=== PATIENT | male | born 1975 | race Caucasian/White ===

== ENCOUNTER 2016-08-29 13:53 | Emergency (ER) | payer OTHER ==
--- NOTE | 2016-08-29 15:28 | ER Document Report ---
ED Medical Screen (RME) - General Chief Complaint: Other Stated Complaint: SKIN ISSUE Time seen by provider: 15:23 Mode of Arrival: Ambulatory Information source: Patient TRAVEL OUTSIDE OF THE [place] IN LAST 30 DAYS: No - HPI Patient complains to provider of: PAINFUL LUMP ON BUTTOCK/PELVIC BONE Onset: Other - TWO WEEKS Onset/Duration: Gradual Context: GETTING LARGER, NOW SIZE OF EGG. CANT SEE IT, ITS UNDER SKIN Quality of pain: Dull Severity: Mild Associated Symptoms: None Exacerbated by: Sitting Relieved by: Denies Similar symptoms previously: No Recently seen / treated by doctor: No - Related Data Smoking: Cigarettes Frequency of alcohol use: Occasional Drug Abuse: None Pertinent History: DEPRESSION APPY Allergies/Adverse Reactions: No Known Allergies Allergy (Verified 08/29/16 14:32) Past Medical History - Social History Frequency of alcohol use: Occasional Drug Abuse: None Musculoskeltal Medical History: Reports Hx Musculoskeletal Trauma - from , low back pain Psychiatric Medical History: Reports: Hx Depression Past Surgical History: Reports: Hx Appendectomy, Hx Tonsillectomy - Immunizations Immunizations up to date: Yes Hx Diphtheria, Pertussis, Tetanus Vaccination: Yes Physical Exam - Vital signs Vitals: Temp Pulse Resp BP Pulse Ox 98.2 F 95 14 127/71 H 99 08/29/16 14:04 08/29/16 14:04 08/29/16 14:04 08/29/16 14:04 08/29/16 14:04 Course - Vital Signs Vital signs: Temp Pulse Resp BP Pulse Ox 98.2 F 95 14 127/71 H 99 08/29/16 14:04 08/29/16 14:04 08/29/16 14:04 08/29/16 14:04 08/29/16 14:04
[2016-08-29] MEDS ORDERED: SULFAMETHOXAZOLE/TRIMETHOPRIM 800-160 MG TABLET PO ONE (20:04)
[2016-08-29] MEDS ORDERED: OXYCODONE-ACETAMINOPHEN 5-325 MG TABLET PO ONE (20:04)
[2016-08-29] MEDS ORDERED: IBUPROFEN 600 MG TABLET PO ONE (20:25)
--- NOTE | 2016-08-29 20:27 | ER Document Report ---
ED General - General Chief Complaint: Other Stated Complaint: SKIN ISSUE Mode of Arrival: Ambulatory Notes: Patient is a 40-year-old male without past medical history who presents with 2 weeks of increasing pain to his left buttock. Describes as a dull, deep, aching pain. Touching the area or sitting on it worsens the pain. Nothing improves the pain. Denies a history of similar symptoms in the past. He has not seen his primary care physician regarding this concern. He denies any associated constitutional symptoms or fever. Denies any pain with defecation. TRAVEL OUTSIDE OF THE [place] IN LAST 30 DAYS: No - Related Data Allergies/Adverse Reactions: No Known Allergies Allergy (Verified 08/29/16 14:32) Past Medical History - General Information source: Patient - Social History Smoking Status: Current Some Day Smoker Frequency of alcohol use: Occasional Drug Abuse: None Lives with: Spouse/Significant other Family History: Reviewed & Not Pertinent Patient has suicidal ideation: No Patient has homicidal ideation: No Musculoskeltal Medical History: Reports Hx Musculoskeletal Trauma - from , low back pain Psychiatric Medical History: Reports: Hx Depression Past Surgical History: Reports: Hx Appendectomy, Hx Tonsillectomy - Immunizations Immunizations up to date: Yes Hx Diphtheria, Pertussis, Tetanus Vaccination: Yes Review of Systems - Review of Systems Notes: Constitutional: Negative for fever. HENT: Negative for sore throat. Eyes: Negative for visual changes. Cardiovascular: Negative for chest pain. Respiratory: Negative for shortness of breath. Gastrointestinal: Negative for abdominal pain, vomiting or diarrhea. Genitourinary: Negative for dysuria. Musculoskeletal: Negative for back pain. Skin: Positive for left gluteal abscess Neurological: Negative for headaches, weakness or numbness. 10 point ROS negative except as marked above and in HPI. Physical Exam - Vital signs Vitals: Temp Pulse Resp BP Pulse Ox 98.2 F 95 14 127/71 H 99 08/29/16 14:04 08/29/16 14:04 08/29/16 14:04 08/29/16 14:04 08/29/16 14:04 Interpretation: Normal Notes: PHYSICAL EXAMINATION: GENERAL: Well-appearing, well-nourished and in no acute distress. HEAD: Atraumatic, normocephalic. EYES: Pupils equal round and reactive to light, extraocular movements intact, sclera anicteric, conjunctiva are normal. ENT: nares patent, oropharynx clear without exudates. Moist mucous membranes. NECK: Normal range of motion, supple without lymphadenopathy LUNGS: Breath sounds clear to auscultation bilaterally and equal. No wheezes rales or rhonchi. HEART: Regular rate and rhythm without murmurs ABDOMEN: Soft, nontender, normoactive bowel sounds. No guarding, no rebound. No masses appreciated. Rectal: No fluctuant mass or pain on exam no blood. EXTREMITIES: Normal range of motion, no pitting or edema. No cyanosis. NEUROLOGICAL: No focal neurological deficits. Moves all extremities spontaneously and on command. PSYCH: Normal mood, normal affect. SKIN: Warm, Dry, there is a 1 x 1 cm area of fluctuance and pain on the left buttock just lateral and inferior to the anus. Course - Re-evaluation Re-evalutation: 08/30/16 04:04 Patient presents with a left gluteal abscess close to the anus. There was no evidence of connection to the rectum without any fluctuance or pain on rectal exam. The abscess was incised and drained with expression of purulent drainage. This was a complex I&D given the location and did require expansion of the incision due to the quantity of drainage as well as multiple probings of the cavity with loculation removal. Patient will be started on Bactrim. Does not meet sepsis criteria. At this time will discharge with return precautions and follow-up recommendations. Verbal discharge instructions given a the bedside and opportunity for questions given. Medication warnings reviewed. Patient is in agreement with this plan and has verbalized understanding of return precautions and the need for primary care follow-up in the next 24-72 hours. - Vital Signs Vital signs: Temp Pulse Resp BP Pulse Ox 98.2 F 95 18 127/71 H 99 08/29/16 14:04 08/29/16 14:04 08/29/16 19:49 08/29/16 14:04 08/29/16 14:04 Procedures - Incision and Drainage Left Buttock Time completed: 20:59 Type: Complex Anesthetic type: 1% Lidocaine mL's of anesthetic: 4 Blade size: 11 I&D procedure: Chlorprep applied Incision Method: Incision made by scalpel Amount/type of drainage: 7 mL of thick, purulent drainage Notes: 01/04/17 04:04 Discharge - Discharge Clinical Impression: Gluteal abscess Condition: Good Disposition: HOME, SELF-CARE Additional Instructions: You were seen for an abscess that required drainage. Please clean this area with soap and water twice daily and apply a topical antibiotic. Dress the area after each cleaning. Please return if you develop fever, vomiting, the pain at the site worsens, you notice spreading redness from the area, or you have any other symptoms that are concerning to you. Prescriptions: Sulfamethoxazole/Trimethoprim [Bactrim Ds Tablet] 2 each PO BID #20 tablet Referrals: NICOLE NIETO MD [Primary Care Provider] - Follow up in 3-5 days
[2016-08-30 08:04] VITALS: BP 131/82
== END 2016-08-29 21:24 | disposition home or self-care (01) ==
LOC: ER 13:53
PROC: 0H98XZZ Drainage of Buttock Skin, External Approach (ICD-10-PCS; principal; 2016-08-29)
DX: L02.31 Cutaneous abscess of buttock (principal); F17.200 Nicotine dependence, unspecified, uncomplicated
CPT/HCPCS: 99283

== ENCOUNTER 2016-09-18 18:04 | Emergency (ER) | payer OTHER ==
--- NOTE | 2016-09-18 18:35 | ER Document Report ---
ED Medical Screen (RME) - General Chief Complaint: Abscess Stated Complaint: ABSCESS/BUTTOCKS Time seen by provider: 18:33 Mode of Arrival: Ambulatory Information source: Patient Notes: 41-year-old male presents to ED for a abscess to left buttock. States he had I& D done approximately 2-3 weeks ago. States that the swelling got better right away but the pain has been present since the initial visit. States she was placed on antibiotics after the I&D I have greeted and performed a rapid initial assessment of this patient. A comprehensive ED assessment and evaluation of the patient, analysis of test results and completion of medical decision making process will be conducted by an additional ED providers. TRAVEL OUTSIDE OF THE [place] IN LAST 30 DAYS: No - Related Data Allergies/Adverse Reactions: No Known Allergies Allergy (Verified 08/29/16 14:32) Past Medical History Musculoskeltal Medical History: Reports Hx Musculoskeletal Trauma - from , low back pain Psychiatric Medical History: Reports: Hx Depression Past Surgical History: Reports: Hx Appendectomy, Hx Tonsillectomy - Immunizations Immunizations up to date: Yes Hx Diphtheria, Pertussis, Tetanus Vaccination: Yes Physical Exam - Vital signs Vitals: Temp Pulse Resp BP Pulse Ox 98.1 F 68 16 126/74 H 98 09/18/16 18:29 09/18/16 18:29 09/18/16 18:29 09/18/16 18:29 09/18/16 18:29 Course - Vital Signs Vital signs: Temp Pulse Resp BP Pulse Ox 98.1 F 68 16 126/74 H 98 09/18/16 18:29 09/18/16 18:29 09/18/16 18:29 09/18/16 18:29 09/18/16 18:29
[2016-09-18] MEDS ORDERED: LIDOCAINE 1% INJ-PF (10 MG/ML) 30 ML SDV INJ ONE (23:26)
--- NOTE | 2016-09-18 23:29 | ER Document Report ---
ED Skin Rash/Insect Bite/Abscs - General Chief Complaint: Abscess Stated Complaint: ABSCESS/BUTTOCKS Time seen by provider: 23:29 Mode of Arrival: Ambulatory Information source: Patient TRAVEL OUTSIDE OF THE [place] IN LAST 30 DAYS: No - HPI Patient complains to provider of: Tender/swollen area Onset: Other - 2-3 days Onset/Duration: Persistent Quality of pain: Fullness, Pressure Severity: Moderate Pain Level: 3 Skin Character: Abscess Quality of rash: Painful Identify cause: No Exacerbated by: Denies Relieved by: Denies Similar symptoms previously: Yes Recently seen / treated by doctor: Yes - seen in the emergency room 08/29/2016 for similar Notes: Patient is a 41-year-old male presenting to the emergency room for complaints of painful swelling to left buttock, states he was seen in this emergency room on 09/25/2016 for similar complaints, had incision and drainage performed and was given antibiotics which he completed, he states the symptoms have not completely gone away, he denies any drainage at present time, no fever, no painful bowel movements - Related Data Allergies/Adverse Reactions: No Known Allergies Allergy (Verified 08/29/16 14:32) Past Medical History - General Information source: Patient - Social History Smoking Status: Former Smoker Family History: Reviewed & Not Pertinent Patient has suicidal ideation: No Patient has homicidal ideation: No Renal/ Medical History: Denies: Hx Peritoneal Dialysis Musculoskeltal Medical History: Reports Hx Musculoskeletal Trauma - from , low back pain Psychiatric Medical History: Reports: Hx Depression Past Surgical History: Reports: Hx Appendectomy, Hx Tonsillectomy - Immunizations Immunizations up to date: Yes Hx Diphtheria, Pertussis, Tetanus Vaccination: Yes Review of Systems - Review of Systems Constitutional: No symptoms reported EENT: No symptoms reported Cardiovascular: No symptoms reported Respiratory: No symptoms reported Gastrointestinal: No symptoms reported Genitourinary: No symptoms reported Male Genitourinary: No symptoms reported Musculoskeletal: No symptoms reported Skin: See HPI Hematologic/Lymphatic: No symptoms reported Neurological/Psychological: No symptoms reported -: Yes All other systems reviewed and negative Physical Exam - Vital signs Vitals: Temp Pulse Resp BP Pulse Ox 98.1 F 68 16 126/74 H 98 09/18/16 18:29 09/18/16 18:29 09/18/16 18:29 09/18/16 18:29 09/18/16 18:29 Interpretation: Normal - Notes Notes: - General General appearance: Appears well, Alert In distress: None - HEENT Head: Normocephalic, Atraumatic Eyes: Normal Conjunctiva: Normal Extraocular movements intact: Yes Eyelashes: Normal Pupils: PERRL - Respiratory Respiratory status: No respiratory distress - Cardiovascular Rhythm: Regular - Abdominal Inspection: Normal - Back Back: Normal - Extremities General upper extremity: Normal inspection General lower extremity: Normal inspection - Neurological Neuro grossly intact: Yes Orientation: AAOx4 [place] Coma Scale Eye Opening: Spontaneous [place] Coma Scale Verbal: Oriented [place] Coma Scale Motor: Obeys Commands Stacia Coma Scale Total: 15 - Psychological Associated symptoms: Normal affect, Normal mood - Skin Skin Temperature: Warm Skin Moisture: Dry Skin Color: 1 cm area of erythema and induration to the left buttock just lateral to the anus, mild tenderness, mild swelling, no fluctuance Course - Re-evaluation Re-evalutation: 09/19/16 00:49 Examination of patient's underpants shows there is some drainage on the underpants, it is likely that the abscess actually spontaneously drained just prior to my evaluation, to be on the safe side, area was numbed, a small incision was made using a scalpel to ensure there was no further purulent drainage, wound was probed for loculations, no further purulent drainage was obtained, patient was placed on clindamycin, advised to follow-up with his primary care provider or return if symptoms worsen, patient acknowledges understanding and agreement with this plan - Vital Signs Vital signs: Temp Pulse Resp BP Pulse Ox 98.1 F 64 20 111/74 98 09/18/16 18:33 09/19/16 00:18 09/19/16 00:18 09/19/16 00:18 09/19/16 00:18 Procedures - Incision and Drainage Left Buttock Time completed: 00:02 Type: Simple Anesthetic type: 1% Lidocaine mL's of anesthetic: 5 Blade size: 11 I&D procedure: Chlorprep applied Incision Method: Incision made by scalpel Amount/type of drainage: sanguinous Discharge - Discharge Clinical Impression: Abscess of buttock, left Condition: Stable Disposition: HOME, SELF-CARE Instructions: Abscess ([facility]), Post Incision and Drainage Additional Instructions: Follow up with your primary care provider in one to 2 days. Return to the emergency room immediately if symptoms worsen or any additional concerns. Prescriptions: Clindamycin HCl [Cleocin 150 mg Capsule] 450 mg PO Q6 10 Days
[2016-09-19] MEDS ORDERED: CLINDAMYCIN HCL 150 MG CAPSULE PO ONE ×2 (00:04)
[2016-09-19 00:19] VITALS: BP 111/74
== END 2016-09-19 00:19 | disposition home or self-care (01) ==
LOC: ER 18:04
PROC: 0H98XZZ Drainage of Buttock Skin, External Approach (ICD-10-PCS; principal; 2016-09-18)
DX: L02.31 Cutaneous abscess of buttock (principal); Z87.891 Personal history of nicotine dependence
CPT/HCPCS: 99283; 10060; J3490

== ENCOUNTER 2017-11-29 21:05 | Emergency (ER) | payer OTHER ==
[2017-11-29 23:36] LABS: ABSOLUTE EOSINOPHILS # (AUTO) 0.1 10^3/uL (0.0-0.6); ABSOLUTE LYMPHOCYTES (AUTO) 2.3 10^3/uL (0.5-4.7); ABSOLUTE MONOCYTES (AUTO) 0.5 10^3/uL (0.1-1.4); ABSOLUTE NEUT (AUTO) 5.6 10^3/uL (1.7-8.2); BASOPHILS % (AUTO) 0.4 % (0-2); EOSINOPHILS % (AUTO) 1.1 % (0-6); HEMOGLOBIN 13.6 g/dL (13.5-17.0); LYMPHOCYTES % (AUTO) 27.2 % (13-45); MEAN CORPUSCULAR VOLUME 94 fl (80-97); MONOCYTES % (AUTO) 5.7 % (3-13); PLATELET COUNT 310 10^3/uL (150-450); RED BLOOD COUNT 4.24 10^6/uL (4.35-5.55); RED CELL DISTRIBUTION WIDTH 13.5 % (11.5-14.0); SEGMENTED NEUTROPHILS % (AUTO) 65.6 % (42-78); TOTAL CELLS COUNTED % (AUTO) 100 %; WHITE BLOOD COUNT 8.5 10^3/uL (4.0-10.5)
[2017-11-29 23:48] LABS: ALANINE AMINOTRANSFERASE 54 U/L (21-72); ALBUMIN 4.4 g/dL (3.5-5.0); ALCOHOL 299 mg/dL (NONE DETECTED); ALKALINE PHOSPHATASE 45 U/L (38-126); ANION GAP 14 (5-19); ASPARTATE AMINO TRANSFERASE 44 U/L (17-59); BILIRUBIN,DIRECT 0.1 mg/dL (0.0-0.4); BILIRUBIN,TOTAL 0.2 mg/dL (0.2-1.3); BLOOD UREA NITROGEN 15 mg/dL (7-20); CALCIUM 9.2 mg/dL (8.4-10.2); CARBON DIOXIDE 27 mmol/L (22-30); CHLORIDE 106 mmol/L (98-107); GLUCOSE 118 mg/dL (75-110); POTASSIUM 3.8 mmol/L (3.6-5.0); SODIUM 146.9 mmol/L (137-145); TOTAL PROTEIN 6.9 g/dL (6.3-8.2)
[2017-11-30] MEDS ORDERED: DIPH/PERTUSS(ACELL)/TETANUS VAC/PF 0.5 ML SYR (>=10YO) IM ONE (00:56)
[2017-11-30] MEDS ORDERED: THIAMINE HCL 100 MG in NORMAL SALINE 50 ML IV ONE (00:58)
--- NOTE | 2017-11-30 00:58 | ER Document Report ---
ED Psych Disorder / Suicide - General Chief Complaint: ETOH Abuse Stated Complaint: POSSIBLE ETHOL ABUSE Time Seen by Provider: 11/30/17 00:32 Mode of Arrival: Stretcher Information source: Relative Notes: This is a 42-year-old man brought in by his acute alcohol intoxication with suicidal ideations. The patient has a long history of depression, he has a history of alcohol abuse and is been alcohol free for 10 years. Patient's states that the patient was having progressive depression over the past 2 weeks and was started on Abilify at the [facility]. She states that he seemed to get worse on the Abilify and last Sunday, he started sexting (which is very unusual for him) and appeared agitated. She believes that he has been drinking alcohol for the past 3 days. She states that when she called him today, he said "I have a razor blade and I am tired of this". The patient's states she [place] the patient [place]. 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 His medicines are Prozac 60 mg daily, Wellbutrin 300 mg daily, [place] of 5, fish oil. TRAVEL OUTSIDE OF THE [place] IN LAST 30 DAYS: No - HPI Patient complains to provider of: Agitated, Suicidal ideation Onset: Last week Onset was: Gradual Quality of pain: No pain Severity: None Pain Level: Denies Suicide Risk Factors: Depressed, Male, Substance abuse Situational problems related to: denies: Daughter, Legal problems, Lost job, Parent, Recent , Recent divorce, School, Sexual orientation, Significant other, Son, Spouse, Work, Other Suicide Attempt Method: Stabbing/Cutting Overdose of: No: Acetominophen, Alcohol, Anticholinergic, Anti-depressants, Benzodiazepine, Salicylate, Tricyclic Antidepressant, Other Injury to: Ankle Normal mood: No Associated symptoms: Agitated, Depressed, Irritable, Labile Similar symptoms previously: Yes Recently seen / treated by doctor: No - Related Data Allergies/Adverse Reactions: No Known Allergies Allergy (Verified 08/29/16 14:32) Past Medical History - General Information source: Relative - Social History Smoking Status: Former Smoker Cigarette use (# per day): No Chew tobacco use (# tins/day): No Frequency of alcohol use: since sunday Drug Abuse: None Lives with: Spouse/Significant other Family History: Reviewed & Not Pertinent Patient has suicidal ideation: Yes Patient has homicidal ideation: No - Past Medical History Cardiac Medical History: Reports: None Pulmonary Medical History: Reports: None Neurological Medical History: Reports: None Renal/ Medical History: Reports: None. Denies: Hx Peritoneal Dialysis Malignancy Medical History: Reports None GI Medical History: Reports: Other - buttock cyst Musculoskeltal Medical History: Reports Hx Musculoskeletal Trauma - from , low back pain Psychiatric Medical History: Reports: Hx Depression Past Surgical History: Reports: Hx Appendectomy, Hx Tonsillectomy - Immunizations Immunizations up to date: Yes Hx Diphtheria, Pertussis, Tetanus Vaccination: Yes Review of Systems - Review of Systems Constitutional: denies: Chills, Fever EENT: No symptoms reported Cardiovascular: No symptoms reported Respiratory: No symptoms reported Gastrointestinal: No symptoms reported Genitourinary: No symptoms reported Male Genitourinary: No symptoms reported Musculoskeletal: No symptoms reported Hematologic/Lymphatic: No symptoms reported Neurological/Psychological: See HPI, Depression Physical Exam - Vital signs Vitals: Temp Pulse Resp BP Pulse Ox 98.2 F 98 14 115/74 96 11/29/17 21:21 11/29/17 21:21 11/29/17 21:21 11/29/17 21:21 11/29/17 21:21 Notes: Physical exam: GENERAL: 42-year-old man, sleeping but arousable, alcohol on breath, no acute distress. HEAD: Atraumatic, normocephalic. EYES: Pupils equal round and reactive to light, extraocular movements intact, sclera anicteric, conjunctiva are normal. ENT: TMs normal, nares patent, oropharynx clear without exudates. Moist mucous membranes. NECK: Normal range of motion, supple without obvious mass or JVD. LUNGS: Breath sounds clear to auscultation bilaterally and equal. No wheezes rales or rhonchi. HEART: Regular rate and rhythm without murmurs, rubs or gallops. ABDOMEN: Soft, normoactive bowel sounds. No tenderness to palpation. No guarding, no rebound. No masses appreciated. Back: No lesions. Rectal: Patient does have a chronic cyst in the left buttocks which does not appear tender and is not draining and has no significant fluctuance at this time. (This is chronic and the patient does have an outpatient referral to get this taken care of). EXTREMITIES: Normal range of motion, no pitting or edema. No clubbing or cyanosis. NEUROLOGICAL: Cranial nerves II through XII grossly intact. Normal speech, moving all extremities. PSYCH: Normal mood, normal affect. SKIN: She does have multiple superficial abrasions on the upper extremities. The patient's states that he may have cut himself with a razor blade. Course - Re-evaluation Re-evalutation: 11/30/17 04:40 Note: Patient does not have any obvious head trauma. Head CT shows no acute process. His alcohol level is 299. The plan will be to wait for sobriety and psych evaluation in the morning - Vital Signs Vital signs: Temp Pulse Resp BP Pulse Ox 98.2 F 98 14 115/74 96 11/29/17 21:21 11/29/17 21:21 11/29/17 21:21 11/29/17 21:21 11/29/17 21:21 - Laboratory Result Diagrams: 11/29/17 23:20 11/29/17 23:20 Laboratory results interpreted by me: 11/29/17 11/29/17 11/29/17 23:20 23:20 23:20 RBC 4.24 L Sodium 146.9 H Glucose 118 H Magnesium 2.6 H Salicylates < 1.0 L Acetaminophen < 10 L - Diagnostic Test Radiology reviewed: Image reviewed, Reports reviewed - CT of the head shows no acute process. Chest x-ray shows low volumes with atelectasis. X-ray of the foot shows no acute fracture. - EKG Interpretation by Me Rate: Normal Rhythm: NSR - EKG shows normal sinus rhythm with a ventricular rate of 70, no acute ST-T wave changes Discharge - Discharge Clinical Impression: Depression, Suicidal ideation, Alcohol intoxication, Right ankle sprain Condition: Stable Disposition: PSYCH HOSP/UNIT Instructions: Tetanus Immunization Given ([facility])
[2017-11-30] MEDS: NORMAL SALINE 1000 ML 1,000 ML IV PRN ×2 (01:11→07:21)
[2017-11-30] MEDS ORDERED: FOLIC ACID INJ 5 MG/1 ML 10 ML VIAL IV ONE (01:15)
[2017-11-30 01:20] LABS: ACETAMINOPHEN < 10 ug/mL (10-30); SALICYLATE < 1.0 mg/dL (2.0-20.0)
[2017-11-30] MEDS ORDERED: THIAMINE HCL INJ 200 MG/2 ML VIAL ONE (01:31)
[2017-11-30 01:40] LABS: APPEARANCE,URINE CLEAR; BILIRUBIN,URINE NEGATIVE (NEGATIVE); COLOR,URINE YELLOW; GLUCOSE, URINE NEGATIVE (NEGATIVE); KETONES,URINE NEGATIVE (NEGATIVE); LEUKOCYTE ESTERASE,URINE NEGATIVE (NEGATIVE); NITRITE,URINE NEGATIVE (NEGATIVE); PROTEIN,URINE NEGATIVE (NEGATIVE); URINE SPECIFIC GRAVITY 1.008; UROBILINOGEN,URINE NEGATIVE mg/dL (<2.0)
[2017-11-30 01:56] LABS: URINE AMPHETAMINES SCREEN NEGATIVE; URINE BARBITURATES SCREEN NEGATIVE; URINE BENZODIAZEPINES SCREEN NEGATIVE; URINE COCAINE SCREEN NEGATIVE; URINE MARIJUANA (THC) SCREEN NEGATIVE; URINE METHADONE SCREEN NEGATIVE; URINE PHENCYCLIDINE SCREEN NEGATIVE
--- NOTE | 2017-11-30 03:03 | RADIOLOGY REPORT (SQ) ---
EXAM DESCRIPTION: CT HEAD WITHOUT CLINICAL HISTORY: Change in mental status COMPARISON: None available TECHNIQUE: Axial CT of the head obtained from the skull apex to the skull base without contrast. FINDINGS: No acute intracranial hemorrhage identified. No mass, mass effect, shift of the midline, abnormal extra-axial fluid collection or CT evidence of acute ischemic change identified. The ventricular system is unremarkable. No acute abnormalities of the supratentorial white matter, basal ganglia, cerebellum, or brainstem. The visualized paranasal sinuses and the mastoids are clear. No skull fracture identified. Visualized orbits and globes are unremarkable. DLP:1070.38 mGy-cm IMPRESSION: 1. No acute intracranial abnormality identified. This exam was performed according to our departmental dose-optimization program, which includes automated exposure control, adjustment of the mA and/or kV according to patient size and/or use of iterative reconstruction technique.
--- NOTE | 2017-11-30 03:15 | RADIOLOGY REPORT (SQ) ---
EXAM DESCRIPTION: CHEST SINGLE VIEW CLINICAL HISTORY: chest pain COMPARISON: None. FINDINGS: Single frontal view of the chest. The cardiomediastinal silhouette has normal size and contour. Normal bibasilar opacities. Low lung volumes. No pneumothorax or pleural effusion. No displaced rib fractures identified. Upper abdominal soft tissues are unremarkable. IMPRESSION: 1. Low lung volumes with minimal bibasilar opacities which may be related to subsegmental atelectasis.
--- NOTE | 2017-11-30 03:16 | RADIOLOGY REPORT (SQ) ---
EXAM DESCRIPTION: ANKLE RIGHT AP/LATERAL CLINICAL HISTORY: right ankle swelling COMPARISON: None. FINDINGS: 2 views of the right ankle. No acute fracture or dislocation. Degenerative change of the ankle. Normal osseous mineralization. Base of the fifth metatarsal appears intact. Tibial plafond and talar dome have normal appearance. Soft tissue edema. IMPRESSION: No acute fracture or dislocation.
[2017-11-30] MEDS ORDERED: ACETAMINOPHEN 325 MG TABLET PO ONE (06:30)
[2017-11-30] MEDS ORDERED: LORAZEPAM INJ 2 MG/1 ML VIAL IV ONE (06:31)
[2017-11-30] MEDS ORDERED: IBUPROFEN 600 MG TABLET PO ONE (10:15)
--- NOTE | 2017-11-30 10:18 | ER Document Report ---
Doctor's Note Notes: 11/30/17 10:17 Rounds: Chart reviewed and patient interviewed. Patient is awake and alert and answering questions appropriately. Being evaluated for depression and suicidal ideation and substance abuse. Patient has been 10 years without drinking alcohol until this past week. His alcohol level upon admission here was 299. All other labs essentially normal. Vital signs are normal. Patient denies feeling suicidal at this time. He attributes his acute depression to the starting to take Abilify last week. Patient appears to be medically stable for transfer or discharge. Cr Lockhart MD
--- NOTE | 2017-11-30 10:32 | EKG REPORT ---
SEVERITY:- OTHERWISE NORMAL ECG - SINUS RHYTHM LEFT AXIS DEVIATION : Confirmed by: Felipe Talbert 30-Nov-2017 10:31:42
[2017-11-30] MEDS ORDERED: VENLAFAXINE HCL 37.5 MG CAP.SR.24H PO ONE (14:06)
[2017-11-30] MEDS ORDERED: BUSPIRONE HCL 10 MG TABLET PO ONE (14:06)
[2017-11-30 14:23] VITALS: BP 135/80
--- NOTE | 2017-12-02 10:39 | PSYCHOLOGICAL NOTE ---
Psych Note - Psych Note Psych Note: Reason for Consult: suicidal ideation, substance abuse; alcohol Consult requested 0700 evaluation 0825 This is a 42-year-old man brought in by his acute alcohol intoxication with suicidal ideations. The patient has a long history of depression, he has a history of alcohol abuse and is been alcohol free for 10 years. Patient's states that the patient was having progressive depression over the past 2 weeks and [facility] She states that he seemed to get worse on the Abilify and last Sunday, he started sexting (which is very unusual for him) and appeared agitated. Patient disclosed he does not remember anything past calling his , Aisha. He states that they have been having marital problems and was staying at a "friend's" house the last 2 days. He reports last night he drove to the [facility], started drinking (he was 10 years sober) and had suicidal ideation. He reports he took a razor and started to cut himself; clinician observes about 2 superficial scratches going up his forearm. Patient disclosed that he was glad he was found and denies current suicidal ideation; "I am mandy...I am glad they found me." Patient's , Aisha, disclosed the patient had a recent medication change ( Abilify) and he started to demonstrate behaviour that she reports is very out of character for the patient. He was sexting and then drank last night after 10 years being sober. Behavioral Health team was notified there was visitors for the patient that disclosed they are the patient's family and Aisha is not the patient's . Family is very tearful. After discussing with patient alone whom he would like to be in his room, he disclosed he wanted Aisha. patient is alert and orientated to person, place time and circumstance. Mood is euthymic with congruent affect. Delusions are absent and behaviors congruent with intact reality based presentation i.e. organized and linear thought processes. Patient denies suicidal and homicidal ideation stating that he was drinking last night after 10 years of sobriety. Delusions are absent and behaviors congruent with intact reality based presentation i.e. organized and linear thought processes. Eye contact was well-maintained. Conversational speech was within normal rate, tone and prosody. Attention and concentration are good. Insight, judgment, impulse control are currently good however it is noted patient has relapsed last night after 10 years of sobriety. Medication recommendations per [facility]'s contracted psychiatrist Dr. Shari BAZZI are as follows 1. Effexor 37.5mg twice daily for both antidepressant and assistance in alcohol cravings 2. BuSpar 10mg twice daily for anxiety Substance abuse; alcohol, recent relapse after 10 year sobriety patient is recommended for rescind of IVC and is considered impression/plan: Cleared from acute psychiatric services. Patient denies current suicidal ideation and is no longer under the influence. Patient no longer meets IVC criteria per [place] GS 122C. Patient discloses recent medication change that could have contributed to recent behavioral changes. [facility] 10 AM. Patient is recommended to reengage in sobriety support services in obtaining mental health treatment. Dr. Alvarez was consulted and the care and management of this patient; attending physician is in agreement with recommendations and disposition.
== END 2017-11-30 14:35 | disposition home or self-care (01) ==
LOC: ER 21:05
DX: F32.9 Major depressive disorder, single episode, unspecified (principal); F10.129 Alcohol abuse with intoxication, unspecified; Y90.8 Blood alcohol level of 240 mg/100 ml or more; S93.401A Sprain of unspecified ligament of right ankle, initial encounter; X58.XXXA Exposure to other specified factors, initial encounter; S50.812A Abrasion of left forearm, initial encounter; S50.811A Abrasion of right forearm, initial encounter; X78.8XXA Intentional self-harm by other sharp object, initial encounter; Y93.89 Activity, other specified; Y92.821 Forest as the place of occurrence of the external cause; R41.3 Other amnesia; R45.851 Suicidal ideations; J98.11 Atelectasis; R45.4 Irritability and anger; R45.1 Restlessness and agitation; Z79.899 Other long term (current) drug therapy; Z87.891 Personal history of nicotine dependence
CPT/HCPCS: 93005; 99285; 96361; 90471; 96374; 96375; 36415; 80307 ×4; 83735; 84443; 85025; 80053; 81001; 73600; 71045; 70450; 90715; 93010; L1902; J3490 ×2; J3411; J7030

== ENCOUNTER 2017-12-26 13:01 | Day surgery (SDC) | payer OTHER ==
[2017-12-24 10:18] LABS: HEMATOCRIT 40.2 % (37.9-51.0); HEMOGLOBIN 13.6 g/dL (13.5-17.0); MEAN CORPUSCULAR HEMOGLOBIN 32.1 pg (27.0-33.4); MEAN CORPUSCULAR HGB CONC 33.8 g/dL (32.0-36.0); MEAN CORPUSCULAR VOLUME 95 fl (80-97); PLATELET COUNT 255 10^3/uL (150-450); RED BLOOD COUNT 4.24 10^6/uL (4.35-5.55); RED CELL DISTRIBUTION WIDTH 13.5 % (11.5-14.0)
[2017-12-24 10:42] LABS: ANION GAP 13 (5-19); BLOOD UREA NITROGEN 16 mg/dL (7-20); CALCIUM 9.6 mg/dL (8.4-10.2); CARBON DIOXIDE 30 mmol/L (22-30); CHLORIDE 102 mmol/L (98-107); GLUCOSE 83 mg/dL (75-110); POTASSIUM 4.9 mmol/L (3.6-5.0)
[~2017-12-26 13:01] MED LIST: LACTATED RINGERS 1000 ML IV PRN; LIDOCAINE 0.5% INJ-PF (5 MG/ML) 50 ML SDV SUBCUT PRN; LIDOCAINE 1%/EPINEPHRINE INJ 20 ML VIAL ONE; LIDOCAINE 2% JELLY 30 ML TUBE ONE; METRONIDAZOLE 500 MG/NS RTU 100 ML IV PRN; SUCCINYLCHOLINE CHLORIDE INJ 200 MG/10 ML VIAL ONE
[2017-12-26] MEDS ORDERED: MIDAZOLAM 2 MG/2 ML INJ ONE (15:23)
[2017-12-26] MEDS ORDERED: EPHEDRINE SULFATE INJ 50 MG/1 ML AMPULE ONE (15:23)
[2017-12-26] MEDS ORDERED: FENTANYL CITRATE INJ/PF 250 MCG/5 ML AMPULE ONE (15:23)
[2017-12-26] MEDS ORDERED: HYDROMORPHONE HCL INJ/PF 2 MG/ML AMPULE ONE (15:24)
[2017-12-26] MEDS ORDERED: PROPOFOL INJ 200 MG/20 ML VIAL IV ONE (15:24)
[2017-12-26] MEDS ORDERED: ACETAMINOPHEN 100 ML IV ONE (15:24)
[2017-12-26] MEDS ORDERED: OXYCODONE-ACETAMINOPHEN 5-325 MG TABLET PO PRN (16:48)
--- NOTE | 2017-12-26 16:48 | Discharge Summary ---
Discharge Summary (SDC) - Discharge Final Diagnosis: Anal fistula Date of Surgery: 12/26/17 Discharge Date: 12/26/17 Condition: Stable Treatment or Instructions: [facility] [address] [place] [id number] Fistula Excision Discharge Instructions 1. General Information: a. DO NOT DRIVE a car or operate dangerous machinery for 4-7 days or while taking narcotic prescription pain pills. b. DO NOT consume alcohol, tranquilizers, sleeping medications or any non- prescribed medications for 24 hours unless approved by your doctor or as long as taking narcotic prescription medications. c. DO NOT make important decisions or sign any important papers for the first 24 hours after surgery. d. Have a responsible person with you tonight. 2. Activity Restrictions: 2 weeks. a. Avoid heavy lifting or straining until you feel more comfortable. b. It is fine to go for walks, up and down steps, ride in a car. c. Avoid prolonged direct contact or pressure to the area. 3. Treatment: a. You may shower the next day. It is usually best to remove the outer dressing before the shower. Wash any soap out of the wound daily. c. If no packing was placed, shower, like normal and dry. Cover with a dry gauze and tape. c. Change the dressing after each bowel movement. 4. Medications: a. You may take the prescription tablets for pain one tablet every 6 hours. (_ Tordaol____). d. Stool softeners are encouraged to hel you for 2-4 weeks to maintain a soft stool and avoid more painful bowel movements due to pain medication. Colace is often used. 5. Diet: a. Begin with clear liquids and if you do well you may then advance to normal foods low in fat and protein at first. Smaller portion size may be mohan the first night. 6. Notify Physician If: a. Worsening of pain not improved with pain medication b. Fever above 101 c. Persistent bleeding or swelling at operative site d. Unable to urinate and uncomfortable bladder 6-8 hours after surgery 7..Follow Up Care: a. Schedule a follow up appointment with your doctor for 2 weeks. In the event of any postoperative problems or questions or you may call the office during business hours or the On-Call physician evenings and weekends at [facility]. [facility] I understand the instructions for my postoperative care as described above and a copy has been given to me. Patient/Significant Other Witness Date Prescriptions: Ketorolac Tromethamine [Toradol 10 mg Tablet] 10 mg PO Q6HP PRN #20 tablet PRN Reason: Referrals: KAE HOANG FNP [Primary Care Provider] - Discharge Diet: As Tolerated Discharge Activity: Walk Frequently Report the Following to Your Physician Immediately: Nausea, Vomiting, Fever over 101 Degrees, Redness, Swelling, Warmth, Drainage-Foul Smelling
--- NOTE | 2017-12-26 16:54 | Operative Report ---
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 2. Excision of complex left lateral fistula in ano (complete fistulectomy) SURGEON: CROW GILBERT 1ST CARD LACER: DIONICIO NUNEZ ANESTHESIA: GA TISSUE REMOVED OR ALTERED: Anal abscess cavity and fistula COMPLICATIONS: None ESTIMATED BLOOD LOSS: Scant INTRAOPERATIVE FINDINGS: See below PROCEDURE: The patient was taken to the main operating room where general anesthesia was induced. He was placed in the prone jackknife position buttocks spread, hair clipped, buttocks taped widely open. Surgical plan surgical timeout were conducted. The perianal tissue was prepped with Betadine. Findings were significant for opening in the perianal tissue consistent with perianal abscess approximately 4 cm from the anal verge. There was a small amount of pus coming from this area. We dilated up the anal rectal canal to admit to adult fingers. The bullet anoscope was inserted into the anal canal, and we examined for any other pathology. The findings were significant for an opening in the skin just at the anal verge, in a direct radial line with the perianal abscess drainage site. Initially we felt this was a superficial fistula tract but in reality it turned out to be partially intersphincteric, almost in a U-shaped fashion. We now injected full-strength peroxide using a Jelco 18-gauge into the abscess cavity and fistula tract. Not only was peroxide bubbling out through the superficial fistula opening, but there was peroxide coming from a deeper side right at the dentate line. We surmised that there were 2 internal openings to this complex fistula in ano. I anesthetized the skin around the exit site of the perianal abscess, and proceeded to excise the abscess cavity which was quite small, in conjunction with fistula tract which was actually a bifurcated or "Y" configured; we used a combination of sharp and electric cautery and mostly scissor dissection to remove the well-established chronic tract. The entire abscess cavity which was quite small was removed, in conjunction with the first superficial fistula which in fact required us to dissect through the external sphincter muscle. We did this very carefully so as to minimize disruption of skeletal muscle fibers. Once the entire superficial tract was excised, we had now a second hole in the patient's anal tissue, right at the anal verge, approximately 5 mm in diameter. The original abscess excision site was approximately 2.5 cm in diameter. Continue to dissected the deeper tract which tunneled close to and parallel to the anorectal canal. Eventually the fistula tapered to a narrow fibrous cord and released itself from the rectal wall. We sent all of the fragments of the fistula to pathology. We irrigated out the perianal tissue thoroughly. We did cauterize gently the mucosa at the deep fistula opening at the dentate line. At this point we felt the operation was complete. Bleeding was never of concern. There was no autumn pus. I felt it was most appropriate to manage the wounds by allowing them to close by secondary intention. 4 x 4's were applied. Patient tolerated procedure well, rotated into the supine position, extubated and taken to the recovery room in stable condition. The physician trust administrative assistant, Ms. Esteves, provided assistance during this case by: Assisting retracting tissue, instillation of local anesthesia and closure of skin incisions.
[2017-12-26 18:47] VITALS: BP 114/70
== END 2017-12-26 18:50 | disposition home or self-care (01) ==
LOC: OROUT 13:01
PROVIDERS: ATTEND Surgery
DX: K60.3 Anal fistula (principal); F41.9 Anxiety disorder, unspecified; Z87.891 Personal history of nicotine dependence; Z79.899 Other long term (current) drug therapy
CPT/HCPCS: 36415; 85027; 80048; 88305 ×2; 46270; J2250; J3490 ×2; J3010; J1170; J0330; J2704; J0131; 902

== ENCOUNTER 2018-02-12 22:28 | Emergency (ER) | payer OTHER ==
[2018-02-13] MEDS ORDERED: DIAZEPAM 5 MG TABLET PO ONE (01:59)
--- NOTE | 2018-02-13 02:08 | ER Document Report ---
ED General - General Chief Complaint: Headache Stated Complaint: HEADACHES Time Seen by Provider: 02/13/18 01:49 Mode of Arrival: Ambulatory Information source: Patient Notes: 42 yr old male presents with complaints of left tmj pain over the past few years worsened today causing pain to his head. pt notes that this is similar ot his previous jaw and headache. denies any fevers or chills, denies any nausea vomiting, denies any light sensitivity. pt denies any temporal pain, notes that he has been evaluated for this pain in the past and is to see the dentist next week TRAVEL OUTSIDE OF THE [place] IN LAST 30 DAYS: No - HPI Onset: Other Onset/Duration: Persistent Quality of pain: Sharp Severity: Mild Pain Level: 2 Associated symptoms: Headache Exacerbated by: Other - opening and closing mouth Relieved by: Denies Similar symptoms previously: Yes Recently seen / treated by doctor: Yes - Related Data Allergies/Adverse Reactions: No Known Allergies Allergy (Verified 12/26/17 13:57) Past Medical History - Social History Smoking Status: Never Smoker Cigarette use (# per day): No Chew tobacco use (# tins/day): No Smoking Education Provided: No Frequency of alcohol use: None Drug Abuse: None Family History: Reviewed & Not Pertinent Patient has suicidal ideation: No Patient has homicidal ideation: No - Past Medical History Cardiac Medical History: Denies: Hx Coronary Artery Disease, Hx Heart Attack, Hx Hypertension Pulmonary Medical History: Denies: Hx Asthma, Hx Bronchitis, Hx COPD, Hx Pneumonia Neurological Medical History: Denies: Hx Cerebrovascular Accident, Hx Seizures Renal/ Medical History: Denies: Hx Peritoneal Dialysis Musculoskeltal Medical History: Denies Hx Arthritis, Reports Hx Musculoskeletal Trauma - from , low back pain Psychiatric Medical History: Reports: Hx Depression Past Surgical History: Reports: Hx Appendectomy, Hx Tonsillectomy - Immunizations Immunizations up to date: Yes Hx Diphtheria, Pertussis, Tetanus Vaccination: Yes Review of Systems - Review of Systems Notes: REVIEW OF SYSTEMS: CONSTITUTIONAL : Denies fever, chills, or sweats. Denies recent illness. EENT: left jaw pain radiating to the head CARDIOVASCULAR: Denies chest pain. Denies palpitations or racing or irregular heart beat. Denies ankle edema. RESPIRATORY: Denies cough, cold, or chest congestion. Denies shortness of breath, difficulty breathing, or wheezing. GASTROINTESTINAL: Denies abdominal pain or distention. Denies nausea, vomiting , or diarrhea. Denies blood in vomitus, stools, or per rectum. Denies black, tarry stools. Denies constipation. GENITOURINARY: Denies difficulty urinating, painful urination, burning, frequency, blood in urine, or discharge. MUSCULOSKELETAL: Denies back or neck pain or stiffness. Denies joint pain or swelling. SKIN: Denies rash, lesions or sores. HEMATOLOGIC : Denies easy bruising or bleeding. LYMPHATIC: Denies swollen, enlarged glands. NEUROLOGICAL: Denies confusion or altered mental status. Denies passing out or loss of consciousness. Denies dizziness or lightheadedness. Denies headache. Denies weakness or paralysis or loss of use of either side. Denies problems with gait or speech. Denies sensory loss, numbness, or tingling. Denies seizures. PSYCHIATRIC: Denies anxiety or stress. Denies depression, suicidal ideation, or homicidal ideation. ALL OTHER SYSTEMS REVIEWED AND NEGATIVE. Dictation was performed using [employer] voice recognition software PHYSICAL EXAMINATION: GENERAL: Well-appearing, well-nourished and in no acute distress. HEAD: Atraumatic, normocephalic. EYES: Pupils equal round and reactive to light, extraocular movements intact, sclera anicteric, conjunctiva are normal. ENT: Nares patent, oropharynx clear without exudates. Moist mucous membranes. point tenderness of the left jaw, no clicking of the tmj noted, no temporal tenderness NECK: Normal range of motion, supple without lymphadenopathy LUNGS: Breath sounds clear to auscultation bilaterally and equal. No wheezes rales or rhonchi. HEART: Regular rate and rhythm without murmurs ABDOMEN: Soft, nontender, nondistended abdomen. No guarding, no rebound. No masses appreciated. Musculoskeletal: Normal range of motion, no pitting or edema. No cyanosis. NEUROLOGICAL: Cranial nerves grossly intact. Normal speech, normal gait. Normal sensory, motor exams PSYCH: Normal mood, normal affect. SKIN: Warm, Dry, normal turgor, no rashes or lesions noted. Physical Exam - Vital signs Vitals: Temp Pulse Resp BP Pulse Ox 97.9 F 66 18 150/81 H 96 02/12/18 22:40 02/12/18 22:40 02/12/18 22:40 02/12/18 22:40 02/12/18 22:40 Course - Re-evaluation Re-evalutation: 02/13/18 03:15 pts presentation is not concerning for any intracranial abnormality, they notes that they are wanting imaging [facility] get [facility] with his molar impaction. i will order imaging at thier request. pt has no neuro deficits, he is sleeping on my initial evaluation in no distress, pt given valium for the joint discomfort and will dc home with muscle relaxant. After performing a Medical Screening Examination, I estimate there is LOW risk for ACUTE GLAUCOMA, TEMPORAL ARTERITIS, MENINGITIS, INCRANIAL HEMORRHAGE, or ISCHEMIC STROKE thus I consider the discharge disposition reasonable. I have reevaluated this patient multiple times and no significant life threatening changes are noted. The patient and I have discussed the diagnosis and risks, and we agree with discharging home with close follow-up with the understanding that symptoms and presentations can change. We also discussed returning to the Emergency Department immediately if new or worsening symptoms occur. We have discussed the symptoms which are most concerning (e.g., changing or worsening symptoms, new numbness or weakness, vomiting, fever) that necessitate immediate return. - Vital Signs Vital signs: Temp Pulse Resp BP Pulse Ox 97.9 F 77 18 120/67 100 02/12/18 22:40 02/13/18 01:04 02/13/18 01:04 02/13/18 01:04 02/13/18 01:04 - Diagnostic Test Radiology reviewed: Image reviewed - xray facial bones notes no signicant abnormality, molar impactions noted, Reports reviewed Discharge - Discharge Clinical Impression: Impacted molar, TMJ pain dysfunction syndrome Condition: Stable Disposition: HOME, SELF-CARE Instructions: Temporomandibular Joint Injury ([facility]), Temporomandibular Joint Syndrome ([facility]) Additional Instructions: Follow up with your physician tomorrow for further care or return to the ED IMMEDIATELY if symptoms worsen or new concerns occur. If you cannot afford to follow up with your primary care physician a list of low cost clinics have been provided at the end of your discharge papers as well. Prescriptions: Cyclobenzaprine HCl [Flexeril 10 mg Tablet] 10 mg PO TIDP PRN #15 tab PRN Reason:
--- NOTE | 2018-02-13 02:25 | RADIOLOGY REPORT (SQ) ---
EXAM DESCRIPTION: XR FACIAL BONES 1-2 VIEWS COMPLETED DATE/TME: 02/13/2018 01:59 CLINICAL HISTORY: 42 years, Male, left tmj pain COMPARISON: None. NUMBER OF VIEWS: 3 LIMITATIONS: No dedicated TMJ views FINDINGS: Three radiographic views of facial bones including a Sanchez' view appear unremarkable. Paranasal sinuses appear clear. IMPRESSION: No acute findings.
[2018-02-13 03:53] VITALS: BP 121/75
== END 2018-02-13 03:52 | disposition home or self-care (01) ==
LOC: ER 22:28
DX: K01.1 Impacted teeth (principal); M26.622 Arthralgia of left temporomandibular joint; R51 Headache
CPT/HCPCS: 70150; 99283

== ENCOUNTER 2018-10-02 09:05 | Day surgery (SDC) | payer OTHER ==
[2018-09-25 09:07] LABS: HEMATOCRIT 39.5 % (37.9-51.0); HEMOGLOBIN 13.5 g/dL (13.5-17.0); MEAN CORPUSCULAR HEMOGLOBIN 32.3 pg (27.0-33.4); MEAN CORPUSCULAR HGB CONC 34.2 g/dL (32.0-36.0); MEAN CORPUSCULAR VOLUME 94 fl (80-97); PLATELET COUNT 250 10^3/uL (150-450); RED BLOOD COUNT 4.18 10^6/uL (4.35-5.55); RED CELL DISTRIBUTION WIDTH 13.8 % (11.5-14.0); WHITE BLOOD COUNT 6.8 10^3/uL (4.0-10.5)
[~2018-10-02 09:05] MED LIST changes: +DEXTROSE 5%-LACTATED RINGERS 1,000 ML IV PRN; -LACTATED RINGERS 1000 ML IV PRN; -LIDOCAINE 0.5% INJ-PF (5 MG/ML) 50 ML SDV SUBCUT PRN; -LIDOCAINE 1%/EPINEPHRINE INJ 20 ML VIAL ONE; -LIDOCAINE 2% JELLY 30 ML TUBE ONE; -METRONIDAZOLE 500 MG/NS RTU 100 ML IV PRN; +METRONIDAZOLE 500 MG/NS RTU 500 MG/100 ML RTUPB IV ONE; +METRONIDAZOLE 500 MG/NS RTU 500 MG/100 ML RTUPB IV PRN
[2018-10-02] MEDS ORDERED: LIDOCAINE 1%/EPINEPHRINE INJ 20 ML VIAL ONE (12:03)
[2018-10-02] MEDS ORDERED: LIDOCAINE 2% URO-JET 5 ML KIT ONE (12:15)
[2018-10-02] MEDS ORDERED: LIDOCAINE 2% INJ-PF (20 MG/ML) 10 ML AMPUL ONE (12:24)
[2018-10-02] MEDS ORDERED: FENTANYL CITRATE INJ/PF 100 MCG/2 ML AMPUL ONE (12:24)
[2018-10-02] MEDS ORDERED: ONDANSETRON HCL INJ/PF 4 MG/2 ML SDV ONE (12:25)
[2018-10-02] MEDS ORDERED: DEXAMETHASONE SOD PHOSPHATE INJ 4 MG/1 ML VIAL ONE (12:25)
[2018-10-02] MEDS ORDERED: PROPOFOL INJ 200 MG/20 ML VIAL IV ONE (12:25)
[2018-10-02] MEDS ORDERED: ACETAMINOPHEN 1,000 MG/100 ML RTUPB IV ONE (12:26)
[2018-10-02] MEDS ORDERED: MIDAZOLAM 2 MG/2 ML INJ ONE (12:27)
[2018-10-02] MEDS ORDERED: DIPHENHYDRAMINE HCL 50 MG/ML VIAL IV PRN (13:05)
[2018-10-02] MEDS ORDERED: MORPHINE SULFATE 10 MG/ML INJ IV PRN (13:05)
[2018-10-02] MEDS ORDERED: MEPERIDINE HCL/PF INJ 25 MG/1 ML DISP.SYRIN IV PRN (13:05)
[2018-10-02] MEDS ORDERED: PROMETHAZINE HCL INJ 25 MG/1 ML VIAL IV PRN ×2 (13:05)
[2018-10-02] MEDS ORDERED: FENTANYL CITRATE INJ/PF 100 MCG/2 ML AMPUL IV PRN ×3 (13:05)
[2018-10-02] MEDS ORDERED: BUPIVACAINE HCL 0.5%-EPI 1:200000 INJ/PF 30 ML VIAL ONE (13:14)
[2018-10-02] MEDS ORDERED: OXYCODONE-ACETAMINOPHEN 5-325 MG TABLET PO PRN (13:30)
--- NOTE | 2018-10-02 13:30 | Discharge Summary ---
Discharge Summary (SDC) - Discharge Final Diagnosis: EUA with fistulotomy Date of Surgery: 10/02/18 Discharge Date: 10/02/18 Condition: Good Forms: ASU Anesthesia D/C Instruction, Discharge POC-Surgical Service Treatment or Instructions: [facility] [address] [place] [id number] Fistulectomy Discharge Instructions 1. General Information: a. DO NOT DRIVE a car or operate dangerous machinery for 4-7 days or while taking narcotic prescription pain pills. b. DO NOT consume alcohol, tranquilizers, sleeping medications or any non- prescribed medications for 24 hours unless approved by your doctor or as long as taking narcotic prescription medications. c. DO NOT make important decisions or sign any important papers for the first 24 hours after surgery. d. Have a responsible person with you tonight. 2. Activity Restrictions: 2 weeks weeks. a. Avoid heavy lifting or straining until you feel more comfortable. b. It is fine to go for walks, up and down steps, ride in a car. c. Avoid prolonged direct contact or pressure to the area. 3. Treatment: a. You may shower the next day. It is usually best to remove the outer dressing before the shower. Then gently pull out the gauze packing inside the cavity. Do not moisten prior to removal. Wash any soap out of the wound daily. Once you're done showering, dry the area completely and cover with gauze. Change dressing after each bowel movement. You may do sitz baths 4x a day. 4. Medications: a. You may take the narcotic prescription tablets for pain one tablet every 6 hours. (Toradol). c. Resume all normal medications unless a change is specified by your doctors. d. Stool softeners are encouraged to help you for 2-4 weeks to maintain a soft stool and avoid more painful bowel movements due to pain medication. Colace is often used. 5. Diet: a. Begin with clear liquids and if you do well you may then advance to normal foods low in fat and protein at first. Smaller portion size may be mohan the first night. 6. Notify Physician If: a. Worsening of pain not improved with pain medication b. Fever above 101 c. Persistent bleeding or swelling at operative site d. Unable to urinate and uncomfortable bladder 6-8 hours after surgery 7..Follow Up Care: a. Schedule a follow up appointment with your doctor for 2 weeks. In the event of any postoperative problems or questions or you may call the office during business hours or the On-Call physician evenings and weekends at [facility]. [facility] I understand the instructions for my postoperative care as described above and a copy has been given to me. Patient/Significant Other Witness Date Prescriptions: Ketorolac Tromethamine [Toradol 10 mg Tablet] 10 mg PO Q6HP PRN #20 tablet PRN Reason: Referrals: CROW GILBERT MD [ACTIVE STAFF] - Discharge Diet: As Tolerated Discharge Activity: Balance Activity w/Rest, No Lifting Over 10 Pounds, No Lifting/Push/Pulling, Walk Frequently Report the Following to Your Physician Immediately: Nausea, Vomiting, Increase in Pain, Fever over 101 Degrees, Unusual Bleeding, Redness, Increased Soreness
--- NOTE | 2018-10-02 13:40 | Operative Report ---
Operative Report DATE OF SURGERY: 10/02/18 PREOPERATIVE DIAGNOSIS: 1. History of complex fistula in anal. 2. Acute left anterior lateral perianal abscess with fistula and anal POSTOPERATIVE DIAGNOSIS: Same OPERATION: 1. Examination under anesthesia. 2. Left anterior lateral perianal abscess excision and fistulectomy SURGEON: CROW GILBERT 1ST SECURITY CONTROL ASSESSOR: DIONICIO NUNEZ ANESTHESIA: GA TISSUE REMOVED OR ALTERED: See below COMPLICATIONS: None ESTIMATED BLOOD LOSS: scant INTRAOPERATIVE FINDINGS: See below PROCEDURE: Patient was taken to the preop holding of the main operating where general anesthesia was induced. He was then placed in the prone jackknife position buttocks spread shaved and taped widely. The buttock was then prepped and draped in sterile fashion. Surgical plan surgical timeout were conducted. Findings are significant for left anterior lateral perianal abscess opening, small. The perianal tissue was anesthetized with 1% plain lidocaine. Anal canal was dilated to admit to adult fingers. There were small internal hemorrhoids posteriorly, collapsed. The remainder of the perianal tissue was intact, with a decent sphincter palpable in a circumferential fashion I placed a small anal probe through the entrance of the left anterior lateral abscess cavity and a track to midline and then towards the anal canal, and with a little gentle pressure opened up into the anal canal proper. There was not a discrete sentinel tag or granulating site in the anal canal consistent with a recent opening. With the probe in position, I palpated the intervening tissue and felt that a complete fistulotomy with debridement of the tract would be appropriate, sacrificing only a few muscle fibers to the external sphincter. This in fact was accomplished with the electrocautery.; I then curetted the fistula track with a curette. This point felt the operation was complete again only a few muscles the external sphincter fibers were divided. The remainder of the sphincter was intact. No other pathology identified. We felt the operation was complete. Marcaine 10 cc was injected into the perianal tissue. Patient taught procedure well, rotated into the supine position, extubated, and taken recovery in stable condition. The physician shop assistant, Ms. Esteves, provided assistance during this case by: Assisting retracting tissue, instillation of local anesthesia and closure of skin incisions.
[2018-10-02] MEDS ORDERED: KETOROLAC TROMETHAMINE INJ/PF 30 MG/1 ML SDV ONE (13:44)
[2018-10-02 15:59] VITALS: BP 120/74
== END 2018-10-02 15:50 | disposition home or self-care (01) ==
LOC: OROUT 09:05
PROVIDERS: ATTEND Surgery
DX: K62.5 Hemorrhage of anus and rectum (principal); K61.1 Rectal abscess; Z87.891 Personal history of nicotine dependence; Z79.899 Other long term (current) drug therapy
CPT/HCPCS: 36415; 85027; 46275; A6266; J2250; J3490 ×3; J1100; J3010; J1885; J0330; J2405; J0131; 902; J2704